=== PATIENT | female | born 2000 | race Two or more races ===

== ENCOUNTER 2024-01-30 12:27 | Emergency (ER) | payer OTHER, MEDICAID ==
[~2024-01-30] VITALS: Ht 154.9 cm; Wt 88.6 kg
[2024-01-30 12:49] VITALS: TEMP 98.1
[2024-01-30] MEDS: CYCLOBENZAPRINE HCL 10 MG TABLET PO ONE (15:05)
[2024-01-30] MEDS: IBUPROFEN 600 MG TABLET PO ONE (15:06)
[2024-01-30 17:11] VITALS: BP 123/82; PULSE 62; RESP 18
== END 2024-01-30 17:17 | disposition home or self-care (01) ==
LOC: EMS 12:27
DX: S16.1XXA Strain of muscle, fascia and tendon at neck level, initial encounter (principal); M54.50 Low back pain, unspecified; J45.909 Unspecified asthma, uncomplicated; V89.2XXA Person injured in unspecified motor-vehicle accident, traffic, initial encounter; Y93.89 Activity, other specified; Y92.89 Other specified places as the place of occurrence of the external cause; Y99.8 Other external cause status
CPT/HCPCS: 72100; 72125; 84703; 99284; Z7502; Z7610